=== PATIENT | male | born 1950 | race Caucasian/White ===

== ENCOUNTER 2024-08-14 15:56 | Inpatient (IN) | payer OTHER ==
[~2024-08-14] VITALS: Ht 160 cm; Wt 68.0 kg
[2024-08-14 16:03] VITALS: BP_SYST 142; PULSE 85; RESP 20; TEMP 98.3; O2SAT 98
[2024-08-14] MEDS ORDERED: TRIA1CAP88 PO (17:10)
[2024-08-14] MEDS ORDERED: METF-379 PO (17:10)
[2024-08-14] MEDS ORDERED: CLON0.2T PO (17:10)
[2024-08-14] MEDS ORDERED: SENN-295 PO (17:10)
[2024-08-14] MEDS ORDERED: GINK120C PO (17:10)
[2024-08-14] MEDS ORDERED: LISI30TA36 PO (17:10)
[2024-08-14 17:13] LABS: BASOPHILS # (AUTO) 0.1 K/uL (0.0-0.2); BASOPHILS % (AUTO) 0.7 % (0.0-2.0); EOSINOPHILS % (AUTO) 0.2 % (0.0-4.0); HEMATOCRIT 45.6 % (36-54); HEMOGLOBIN 15.9 g/dL (14.0-18.0); LYMPHOCYTES # (AUTO) 1.3 K/uL (1.0-5.5); LYMPHOCYTES % (AUTO) 14.6 % (20.5-51.5); MEAN CORPUSCULAR HEMOGLOBIN 32 pg (27-31); MEAN CORPUSCULAR HGB CONC 35 % (32-36); MEAN CORPUSCULAR VOLUME 93 fL (79.0-98.0); MONOCYTES # (AUTO) 1.1 K/uL (0.0-1.0); MONOCYTES % (AUTO) 13.2 % (1.7-9.3); NEUTROPHILS # (AUTO) 6.2 K/uL (1.8-7.7); NEUTROPHILS % (AUTO) 71.3 % (40.0-70.0); PLATELET COUNT (AUTO) 210 K/uL (130-430); RED CELL DISTRIBUTION WIDTH 13.8 % (9.0-15.0); WHITE BLOOD COUNT (AUTO) 8.7 K/uL (4.8-10.8)
[2024-08-14 17:29] LABS: ALANINE AMINOTRANSFERASE 23 U/L (12-78); ALBUMIN 3.9 g/dL (3.4-4.8); ANION GAP 11 (5-15); ASPARTATE AMINOTRANSFERASE 56 U/L (10-37); CALCIUM 9.7 mg/dL (8.4-11.0); CARBON DIOXIDE 26 mmol/L (23-29); CHLORIDE 103 mmol/L (98-107); CREATININE 1.29 mg/dL (0.55-1.30); GLUCOSE 108 mg/dL (74-106); INR 1.1 (0.80-1.20); POTASSIUM 3.2 mmol/L (3.5-5.1); PROTHROMBIN TIME 11.4 SECS (9.5-12.5); SODIUM SERUM 140 mmol/L (136-145); TOTAL BILIRUBIN 1.3 mg/dL (0.0-1.0); TOTAL PROTEIN, SERUM 7.6 g/dL (6.4-8.3); UREA NITROGEN, BLOOD 23 mg/dL (8-21)
[2024-08-14 17:52] LABS: ACETONE, SERUM NEGATIVE (NEGATIVE)
[2024-08-14 17:59] LABS: BILIRUBIN,DIRECT 0.3 mg/dL (0.0-0.3); CREATINE KINASE, TOTAL 1506 U/L (39-308); SALICYLATE 1 mg/dL (3-30)
[2024-08-14 18:02] LABS: ACETAMINOPHEN < 1 ug/mL (1-30); ALCOHOL, BLOOD < 3 mg/dL (<10)
[2024-08-14] MEDS: ASPIRIN 81 MG TAB.CHEW PO ONE (18:06)
[2024-08-14] MEDS: ASPIRIN 81 MG TABLET(ECOTRIN) PO ONE (18:07)
[2024-08-14 18:13] LABS: CKMB RELATIVE INDEX 0.6 (0.0-2.9)
[2024-08-14] MEDS ORDERED: ONDANSETRON HCL 4 MG/2 ML VIAL IVP PRN (18:15)
[2024-08-14] MEDS ORDERED: MORPHINE 2 MG/ML INJ. SYRINGE IVP PRN (18:15)
[2024-08-14] MEDS ORDERED: LORazepam 2 MG/ML VIAL IVP PRN (18:15)
[2024-08-14 18:38] LABS: CHOLESTEROL 180 mg/dL (<200); HDL CHOLESTEROL 54 mg/dL (>45); TRIGLYCERIDES 70 mg/dL (30-150)
[2024-08-14 18:40] LABS: BILIRUBIN,URINE NEGATIVE (NEGATIVE); BLOOD, URINE 2+ (NEGATIVE); CLARITY/URINE CLEAR (CLEAR); COLOR,URINE YELLOW (YELLOW); GLUCOSE,URINE NEGATIVE (NEGATIVE); KETONES,URINE 2+ (NEGATIVE); LEUKOCYTE ESTERASE ,URINE NEGATIVE (NEGATIVE); NITRITE, URINE NEGATIVE (NEGATIVE); PROTEIN URINE 2+ (NEGATIVE); UROBILINOGEN,URINE 0.2 (0.2-1.0)
[2024-08-14] MEDS: D5/0.45 NS 1,000 ML IV SCH (18:40)
[2024-08-14] MEDS: ASPIRIN 81 MG TAB.CHEW PO SCH (18:40)
[2024-08-14 18:41] LABS: BARBITURATE, URINE NEGATIVE (NEG <=200); BENZODIAZEPINE, URINE NEGATIVE (NEG <=150); CANNABINOID, URINE NEGATIVE (NEG <=50); COCAINE, URINE NEGATIVE (NEG <=150); METHAMPHETAMINES SCREEN,URINE NEGATIVE (NEG <=500); OPIATE, URINE NEGATIVE (NEG <=100); PHENCYCLIDINE SCREEN,URINE NEGATIVE (NEG <=25); UR TRICYCLIC ANTIDEPRESSANTS NEGATIVE (NEG <=300); URINE AMPHETAMINE NEGATIVE (NEG <=500); URINE METHADONE NEGATIVE (NEG <=200); URINE OXYCODONE SCREEN NEGATIVE (NEG <=100)
[2024-08-14 18:42] LABS: BACTERIA,URINE FEW /HPF (None Seen); MUCUS,URINE None Seen /LPF (None Seen); WBC,URINE 0-3 /HPF (0-3)
[2024-08-14] MEDS ORDERED: hydrALAZINE HCL 20 MG/ML VIAL IVP PRN (20:15)
[2024-08-14 21:00] VITALS: BP_SYST 133; PULSE 63; RESP 16; TEMP 98.2; O2SAT 100
[2024-08-15] VITALS: BP_SYST 113; PULSE 62; RESP 16; TEMP 98.1; O2SAT 100
[2024-08-15 06:32] LABS: BASOPHILS # (AUTO) 0.1 K/uL (0.0-0.2); BASOPHILS % (AUTO) 1.4 % (0.0-2.0); EOSINOPHILS # (AUTO) 0.2 K/uL (0.0-0.4); EOSINOPHILS % (AUTO) 2.4 % (0.0-4.0); HEMATOCRIT 44.4 % (36-54); HEMOGLOBIN 15.3 g/dL (14.0-18.0); LYMPHOCYTES # (AUTO) 1.6 K/uL (1.0-5.5); LYMPHOCYTES % (AUTO) 22.1 % (20.5-51.5); MEAN CORPUSCULAR HEMOGLOBIN 32 pg (27-31); MEAN CORPUSCULAR HGB CONC 35 % (32-36); MEAN CORPUSCULAR VOLUME 93 fL (79.0-98.0); MONOCYTES # (AUTO) 1.1 K/uL (0.0-1.0); NEUTROPHILS # (AUTO) 4.2 K/uL (1.8-7.7); NEUTROPHILS % (AUTO) 59.1 % (40.0-70.0); PLATELET COUNT (AUTO) 208 K/uL (130-430); RED CELL DISTRIBUTION WIDTH 13.5 % (9.0-15.0); WHITE BLOOD COUNT (AUTO) 7.1 K/uL (4.8-10.8)
[2024-08-15 07:06] LABS: ALANINE AMINOTRANSFERASE 23 U/L (12-78); ALBUMIN 3.2 g/dL (3.4-4.8); ANION GAP 11 (5-15); ASPARTATE AMINOTRANSFERASE 41 U/L (10-37); CALCIUM 8.8 mg/dL (8.4-11.0); CARBON DIOXIDE 27 mmol/L (23-29); CHLORIDE 103 mmol/L (98-107); CREATININE 1.19 mg/dL (0.55-1.30); GLUCOSE 112 mg/dL (74-106); POTASSIUM 3.1 mmol/L (3.5-5.1); SODIUM SERUM 141 mmol/L (136-145); TOTAL PROTEIN, SERUM 6.7 g/dL (6.4-8.3); UREA NITROGEN, BLOOD 21 mg/dL (8-21)
[2024-08-15 08:00] VITALS: BP_SYST 137; PULSE 82; RESP 16; TEMP 98.3; O2SAT 98
[2024-08-15 09:06] LABS: CKMB RELATIVE INDEX 0.5 (0.0-2.9)
[2024-08-15] MEDS: metFORMIN HCL 500 MG TABLET PO SCH (09:37)
[2024-08-15] MEDS: LISINOPRIL 10 MG TABLET (PRINIVIL) PO SCH (09:37)
[2024-08-15] MEDS: TRIAMTERENE/HYDROCHLOROTHIAZID 1 CAP CAPSULE (DYAZIDE37.5/25) PO SCH (09:38)
[2024-08-15] MEDS: cloNIDine HCL 0.2 MG TABLET PO SCH (09:38)
[2024-08-15] MEDS: SENNOSIDES/DOCUSATE SODIUM 1 TAB TABLET(SENOKOT-S) PO SCH (09:38)
[2024-08-15] MEDS: POTASSIUM CHLORIDE 20 MEQ/PKT PACKET PO ONE (09:40)
[2024-08-15 11:30] VITALS: BP_SYST 100; PULSE 71; RESP 16; TEMP 97.1; O2SAT 96
[2024-08-15] MEDS: NACL 0.9% 1,000 ML IV SCH (12:15)
[2024-08-15 15:04] VITALS: BP_SYST 93; PULSE 57; RESP 16; TEMP 96.9; O2SAT 97
[2024-08-15 20:30] VITALS: BP_SYST 102; PULSE 60; RESP 20; TEMP 98.2; O2SAT 96
[2024-08-15] MEDS ORDERED: AMOX-423 PO (20:34)
[2024-08-15 21:00] VITALS: O2SAT 96
[2024-08-15] MEDS ORDERED: CHOL200019 PO (23:25)
[2024-08-16 01:06] VITALS: BP_SYST 112; PULSE 57; RESP 18; TEMP 97.2; O2SAT 100
[2024-08-16 08:45] VITALS: BP_SYST 139; PULSE 61; RESP 19; TEMP 98; O2SAT 95
[2024-08-16 10:59] LABS: CHOLESTEROL 141 mg/dL (<200); HDL CHOLESTEROL 38 mg/dL (>45); TRIGLYCERIDES 152 mg/dL (30-150)
[2024-08-16 11:50] VITALS: BP_SYST 135; PULSE 65; RESP 19; TEMP 98
[2024-08-16 16:06] VITALS: BP_SYST 137; PULSE 65; RESP 19; TEMP 98; O2SAT 95
[2024-08-16] MEDS ORDERED: ASPI-1155 PO (16:52)
[2024-08-16] MEDS ORDERED: LOSA-413 PO (16:52)
[2024-08-16 17:22] VITALS: BP_SYST 139; PULSE 61; RESP 19; TEMP 98; O2SAT 95
== END 2024-08-16 18:21 | disposition home or self-care (01) | DRG 640 ==
LOC: SED 15:56 → STU 18:10
PROVIDERS: ADMIT Student in an Organized Health Care Education/Training Program; ATTEND Student in an Organized Health Care Education/Training Program
DX: E87.6 Hypokalemia (principal); G92.8 Other toxic encephalopathy; M62.82 Rhabdomyolysis; E44.1 Mild protein-calorie malnutrition; E11.9 Type 2 diabetes mellitus without complications; N28.1 Cyst of kidney, acquired; I71.40 Abdominal aortic aneurysm, without rupture, unspecified; I10 Essential (primary) hypertension; Z68.26 Body mass index [BMI] 26.0-26.9, adult; Z79.899 Other long term (current) drug therapy
CPT/HCPCS: 36415; 70450-TC; 70551; 71045; 71250-TC; 76770; 80048; 80053; 80061; 80076; 80307; 81000; 81001; 81015; 82009; 82140; 82550; 82553; 82948; 83037; 83605; 83735; 84100; 84484; 85025; 85610; 85730; 87040; 87081; 93306; 93880; 95816; 97110-GP; 97116-GP; 97530-GP; 99285; G0378; G0480; G0481; G0482; J1956; J7030